=== PATIENT | male | born 1960 | race Caucasian/White ===

== ENCOUNTER → 2017-01-05 | Outpatient (REF) | payer MEDICARE ==
[2017-01-07 11:52] LABS: HEPATITIS B SURFACE ANTIBODY NEGATIVE (POSITIVE)
== END ==
LOC: M LAB REF 13:35
PROVIDERS: ATTEND Internal Medicine Nephrology
DX: N18.4 Chronic kidney disease, stage 4 (severe) (principal); Z79.899 Other long term (current) drug therapy

== ENCOUNTER → 2017-03-31 | Outpatient (CLI) | payer MEDICARE ==
[~2017-03-31] MED LIST: HEPARIN 1,000 UNITS/ML 10ML VIAL (FOR RADIOLOGY& DIALYSIS ONLY) As Ordered ONE; LIDOCAINE 2% MDV 20 ML VIAL As Ordered ONE
--- NOTE | 2017-04-02 10:31 | RO ---
DATE OF PROCEDURE: 03/31/2017 PREOPERATIVE DIAGNOSIS: End stage renal disease. POSTOPERATIVE DIAGNOSIS: End stage renal disease. PROCEDURE: Ultrasound and fluoroscopic guided left internal jugular vein 23 cm tipped cuff PermCath insertion. SURGEON: Dr. Raul Bacon FIRE TOWER KEEPER: Majo Jones ANESTHESIA: Local with 16 mL of 2% lidocaine. FLUORO TIME: 0.1 minutes. CONTRAST: None. COMPLICATIONS: None. DRAINS: None. SPECIMENS: None. IMPLANTS: Left internal jugular vein 23 cm tipped cuff PermCath. INDICATION: The patient is a 56-year-old male with renal failure who has now reached the point where he requires hemodialysis and requires access for hemodialysis. Patient wanted to go with placement of a PermCath for hemodialysis access. The risks, benefits and alternative treatment options were discussed with the patient. Benefits included, but were not limited to, presence of a catheter for hemodialysis access. Alternative treatment options included, but were not limited to, no intervention. Risks included, but were not limited to, infection, bleeding, pneumothorax, hemothorax, possible need for open surgical intervention, cerebrovascular accident, myocardial infarction, pulmonary embolus, deep vein thrombosis (DVT), loss of limb, loss of life, and poor outcome. Patient's questions were answered. Patient voices understanding of these risks, benefits and alternative treatment options and wishes to proceed with insertion of a left internal jugular vein PermCath and accepts the associated risks. DESCRIPTION OF PROCEDURE: The patient was taken to the angiography suite and placed down on the angiography room table and then prepped and draped in a standard surgical fashion. Ultrasound was used to evaluate the left internal jugular vein which was easily compressible, widely patent and free of thrombus. Ultrasound was then used to guide cannulation of the left internal jugular vein with a micropuncture needle after anesthetizing the overlying skin with 2% lidocaine with real time concurrent ultrasound visualization of entry of the micropuncture needle into the left internal jugular vein with a hard copy image preserved. The micropuncture wire was advanced through the micropuncture needle which was up sized to a micropuncture sheath. An Amplatz wire was advanced through the micropuncture sheath which was used to up size to an introducer sheath. A catheter was tunneled through a puncture wound in the left chest and brought out through a puncture wound at the left internal jugular vein entry site and then advanced through the introducer sheath which was peeled away and removed. Both ports of the catheter were aspirated and noted to aspirate easily and then flushed with heparinized saline. The catheter was secured to the anterior chest wall using #2-0 Prolene suture. The puncture wound in the left neck was closed using a #4-0 Vicryl suture. Dressings were applied. The patient tolerated the procedure well. All instrument, sponge and needle counts were correct at the end of the case. There were no complications. Dr. Bacon was present for and directed the entire case. The patient was transferred to the holding area and subsequently discharged in stable condition. The catheter was stable for use for dialysis access. RADIOLOGIC SUPERVISION INTERPRETATION: The ultrasound of the left internal jugular vein showed the left internal jugular vein to be easily compressible, widely patent and free of thrombus. Ultrasound was used to guide cannulation with real time concurrent imaging performed with the visualization of the needle entering into the internal jugular vein. Fluoroscopic guidance was then used to sequentially dilate the left internal jugular vein. The catheter was placed with the tip in the superior vena cava/right atrial junction. Final fluoroscopic image showed no pneumothorax or hemothorax with the tip of the catheter in the superior vena cava/right atrial junction. The hemodialysis catheter was stable for use for dialysis access.
== END | disposition home or self-care (01) ==
LOC: M IRPRO 13:51
PROVIDERS: ATTEND Surgery Vascular Surgery
DX: N18.6 End stage renal disease (principal)
CPT/HCPCS: 36558; 76937; 77001; C1750; C1769; C1894

== ENCOUNTER 2018-01-27 15:30 | Emergency (ER) | payer MEDICARE ==
[2018-01-27] MEDS: MORPHINE 4 MG/ML 1ML VIAL/SYRINGE (J2270) IV ×2 (16:17→22:51)
[2018-01-27] MEDS: ADACEL/BOOSTRIX VACCINE (DIPHTH/PERTUSS/ACELL/TETANUS)0.5ML SYR (90715) IM (16:20)
[2018-01-27] MEDS: HYDROMORPHONE HCL 0.5 MG/ 0.5 ML SYRINGE (J1170 PER 1) IV ×2 (17:07→23:05)
[2018-01-27 18:13] LABS: BASO % 0.2 % (0.0-1.0); EOS # 0.1 10^3/uL (0.0-0.50); EOS % 1.1 % (0.0-3.0); HEMATOCRIT 45.8 % (42.0-52.0); HEMOGLOBIN 15.1 g/dl (13.5-17.5); IMMATURE GRANULOCYTE % 0.2 % (0-3.0); LYMPH # 1.1 10^3/uL (1.5-4.5); LYMPH % 13.4 % (24.0-44.0); MEAN CORPUSCULAR HEMOGLOBIN 36.8 pg (27.0-33.0); MEAN CORPUSCULAR VOLUME 111.7 fl (80.0-96.0); MONO # 0.5 10^3/uL (0.0-0.8); MONO % 6.4 % (0.0-5.0); NEUTROPHILS # 6.3 10^3/uL (1.8-7.7); NEUTROPHILS % 78.7 % (36.0-66.0); PLATELET COUNT, AUTOMATED 113 10^3/uL (150-450); RED CELL DISTRIBUTION WIDTH 15.6 % (11.5-14.5)
[2018-01-27 18:28] LABS: INR 0.97; PROTHROMBIN TIME 12.9 SECONDS (12.1-14.4)
[2018-01-27] MEDS: LIDOCAINE 2% MDV 20 ML VIAL SC (18:43)
[2018-01-27 18:47] LABS: ALBUMIN 3.4 GM/DL (3.2-5.2); ALBUMIN/GLOBULIN RATIO 1.26 (1.00-1.93); ALKALINE PHOSPHATASE 108 U/L (45-117); ALT/SGPT 21 U/L (12-78); ANION GAP 12 MEQ/L (8-16); AST/SGOT 13 U/L (7-37); BILIRUBIN,DIRECT 0.2 MG/DL (0.0-0.2); BILIRUBIN,TOTAL 0.4 MG/DL (0.2-1.0); BLOOD UREA NITROGEN 77 MG/DL (7-18); CALCIUM LEVEL 9.2 MG/DL (8.5-10.1); CARBON DIOXIDE LEVEL 29 MEQ/L (21-32); CHLORIDE LEVEL 103 MEQ/L (98-107); CREATININE FOR GFR 5.39 MG/DL (0.70-1.30); GLOMERULAR FILTRATION RATE 11.8 (>56); GLUCOSE, FASTING 163 MG/DL (70-100); POTASSIUM SERUM 4.6 MEQ/L (3.5-5.1); SODIUM LEVEL 144 MEQ/L (136-145); TOTAL PROTEIN 6.1 GM/DL (6.4-8.2)
[2018-01-27] MEDS: FUROSEMIDE 100 MG/10 ML VIAL (J1940) IV (21:45)
[2018-01-27] MEDS ORDERED: IPRATROPIUM 0.5MG/ALBUTEROL 2.5MG INH SOL UD 3ML (DUONEB)(J7620) As Ordered (22:51)
[2018-01-27] MEDS: IPRATROPIUM 0.5MG/ALBUTEROL 2.5MG INH SOL UD 3ML (DUONEB)(J7620) NEB (23:00)
== END 2018-01-27 23:31 | disposition short-term general hospital (02) ==
LOC: M ED 15:30
DX: Z04.1 Encounter for examination and observation following transport accident (principal); S82.842A Displaced bimalleolar fracture of left lower leg, initial encounter for closed fracture; S93.05XA Dislocation of left ankle joint, initial encounter; V23.4XXA Motorcycle driver injured in collision with car, pick-up truck or van in traffic accident, initial encounter; Y92.410 Unspecified street and highway as the place of occurrence of the external cause; N18.6 End stage renal disease; Z99.2 Dependence on renal dialysis; E11.9 Type 2 diabetes mellitus without complications; I50.9 Heart failure, unspecified; I13.2 Hypertensive heart and chronic kidney disease with heart failure and with stage 5 chronic kidney disease, or end stage renal disease; I25.10 Atherosclerotic heart disease of native coronary artery without angina pectoris; I44.7 Left bundle-branch block, unspecified; J44.9 Chronic obstructive pulmonary disease, unspecified; E78.9 Disorder of lipoprotein metabolism, unspecified; Z98.890 Other specified postprocedural states; Z79.899 Other long term (current) drug therapy
CPT/HCPCS: J2270